=== PATIENT | male | born 1980 | race Two or more races ===

== ENCOUNTER 2025-01-06 05:46 | Inpatient (IN) | payer BC, OTHER ==
[~2025-01-06] VITALS: Ht 175.3 cm; Wt 86.4 kg
--- NOTE | 2025-01-06 06:59 | ED.PDOC ---
History of Present Illness HPI Comments 44 y/o M presents with c/c nonradiating, epigastric abdominal pain and nausea. Patient endorses on eating breakfast, this morning, when he experience sudden, unprovoked, and atraumatic onset of symptoms. Pain is descried as sharp in quality and a 5/10 in severity. Patient also reports on becoming pale and sw eaty, momentarily, and is unable to pass gas, currently. Significant history of appendectomy and multiple hernias in the past. Social history of nicotine patch use. No endorsement of any recent ailments, sick contacts, or spoiled food consumption. Denial vomiting, diarrhea, constipation, urinary symptoms, fever chills, or further associated symptoms. Chief Complaint: Abdominal Pain Time Seen by MD: 06:40 Reviewed Notes: Nurses Notes, Medications, Allergies Allergies: Coded Allergies: NO KNOWN ALLERGIES (Unverified , 01/06/25) Information Source: Patient Mode of Arrival: Ambulatory Past Medical History Past Medical History (Other): History of multiple hernias Surgical History: Appendectomy, Hernia Repair Family History Family History: Unknown Social History Smoker: Other (nicotine patches ) Alcohol: Denies ETOH Use Drugs: Denies Drug Use Lives In: Home All Other Systems: Reviewed and Negative (Comprehensive systems review obtained and negative except for what is stated in the HPI.) Physical Exam General Appearance: Moderate Distress, Normal HEENT: Normal ENT Inspection, Pharynx Normal, TMs Normal Neck: Full Range of Motion, Non-Tender, Normal, Normal Inspection Respiratory: Chest Non-Tender, Lungs Clear, No Accessory Muscle Use, No Respiratory Distress, Normal Breath Sounds Cardiovascular: No Edema, No JVD, No Murmur, No Gallop, Normal Peripheral Pulses, Regular Rate/Rhythm Breast Exam: Deferred Gastrointestinal: Distended, No Organomegaly, Non Tender, No Pulsatile Mass, Normal Bowel Sounds, Soft Genitalia: Deferred Pelvic: Deferred Rectal: Deferred Extremities: No calf tenderness, Normal capillary refill, Normal inspection, Normal range of motion, Non-tender, No pedal edema Musculoskeletal : Apperance: Normal Neurologic: Alert, route contractor II-XII nml as Tested, No Motor Deficits, Normal Affect, Normal Mood, No Sensory Deficits Cerebellar Function: Normal Reflexes: Normal Skin: Dry, Normal Color, Warm Peripheral Pulses: 3+ Radial (R), 3+ Radial (L) Lymphatic: No Adenopathy Was a procedure done? Was a procedure done?: No Differential Dx Considerations may include: Gastritis, gastroenteritis, acid reflux, PUD, cholelithiasis, cholelithiasis, viral syndrome, constipation, among others X-Ray, Labs, Meds, VS Vital Signs Date Time Temp Pulse Resp B/P (MAP) Pulse Ox O2 Delivery O2 Flow Rate FiO2 01/06/25 05:52 97.8 52 20 142/88 100 97.8 Lab Test 01/06/25 07:30 Range/Units White Blood Count 11.2 H 4.4-10.8 10^3/uL Red Blood Count 5.65 4.5-5.90 10^6/uL Hemoglobin 16.5 13.5-17.5 g/dL Hematocrit 48.3 41.0-53.0 % Mean Corpuscular Volume 85.6 80.0-100.0 fL Mean Corpuscular Hemoglobin 29.1 28.0-32.0 pg Mean Corpuscular Hemoglobin Concent 34.1 32.0-36.0 g/dL Red Cell Distribution Width 13.2 11.8-14.3 % Platelet Count 302 140-450 10^3/uL Mean Platelet Volume 7.5 6.9-10.8 fL Neutrophils (%) (Auto) 85.5 H 37.0-80.0 % Lymphocytes (%) (Auto) 7.9 L 10.0-50.0 % Monocytes (%) (Auto) 5.7 0.0-12.0 % Eosinophils (%) (Auto) 0.6 0.0-7.0 % Basophils (%) (Auto) 0.3 0.0-2.0 % Neutrophils # (Auto) 9.6 H 1.6-8.6 10 ^3/uL Lymphocytes # (Auto) 0.9 0.4-5.4 10 ^3/uL Monocytes # (Auto) 0.6 0-1.3 10 ^3/uL Eosinophils # (Auto) 0.1 0-0.8 10 ^3/uL Basophils # (Auto) 0 0-0.2 10 ^3/uL Nucleated Red Blood Cells 0.0 % Sodium Level 141 136-145 mmol/L Potassium Level 4.1 3.5-5.1 mmol/L Chloride Level 108 H 98-107 mmol/L Carbon Dioxide Level 24 20-31 mmol/L Anion Gap 9 5-15 Blood Urea Nitrogen 16 9-23 mg/dL Creatinine 1.10 0.700-1.30 mg/dL Glomerular Filtration Rate Calc 84 >90 mL/min BUN/Creatinine Ratio 14.5 10.0-20.0 Serum Glucose 147 H 74-106 mg/dL Calcium Level 9.6 8.7-10.4 mg/dL Lipase Pending Patient alert. Complaining of abdominal pain. Blood pressure slightly elevated. Answering all questions. No sign of distress. Establish intravenous access. Was given fluids. Explained to the patient. Continue monitoring. He continues to have abdominal pain. WBC elevated. Blood sugar elevated. CT scan of the abdomen reviewed does show colitis. Was given Zofran. Time of 1ST Reevaluation: 07:10 Reevaluation 1ST: Unchanged Patient Education/Counseling: Diagnosis, Treatment Family Education/Counseling: No Family Present SEPSIS Sepsis Screen Date sepsis recognized/suspect: Jan 06, 2025 Time Sepsis recognized/suspect: 555 Recent Procedure: No On Antibiotic Therapy: No Respiratory Rate >20: No Heart Rate >90: No Temp<36 C (96.8 F) or >38.3 C: No SBP <90 or MAP <65 mmHG: No New Acute Mental Status Change: No Is the patient on CPAP, BIPAP,: No Physician Orders Lipase (01/06/25 06:44) Basic Metabolic Panel (01/06/25 06:44) Ct Ab Pel Wo Con-No Oral Or Iv (01/06/25 07:34) Vital Signs Date Time Temp Pulse Resp B/P (MAP) Pulse Ox O2 Delivery O2 Flow Rate FiO2 01/06/25 05:52 97.8 52 20 142/88 100 97.8 Laboratory Tests Test 01/06/25 07:30 White Blood Count 11.2 10^3/uL (4.4-10.8) H Departure 1 Departure Time of Disposition: 07:33 Impression: Primary Impression: Acute abdominal pain Additional Impressions: Non-specific colitis Uncontrolled diabetes mellitus Qualified Codes: E13.65 - Other specified diabetes mellitus with hyperglycemia Disposition: ADMITTED INPATIENT Admit to: Med Surg Condition: Guarded Critical Care Note Critical Care Time?: No Stability Stability form required: No Heart Score Heart Score: Heart Score Response (Comments) Value History N/A 0 EKG N/A 0 Age N/A 0 Risk Factors N/A 0 Troponin N/A 0 Total 0 I personally scribed for RITA ALFARO MD ([email or web address]) on 01/06/25 at 06:59. Electronically submitted by Alex Bal ([email or web address]). I personally scribed for RITA ALFARO MD ([email or web address]) on 01/06/25 at 07:13. Electronically submitted by Alex Bal ([email or web address]). RITA ALFARO MD Jan 06, 2025 06:59
[2025-01-06 07:40] LABS: Hematocrit 48.3 % (41.0-53.0); Hemoglobin 16.5 g/dL (13.5-17.5); Mean Corpuscular Hemoglobin 29.1 pg (28.0-32.0); Mean Corpuscular Volume 85.6 fL (80.0-100.0); Nucleated Red Blood Cells % 0.0 %
[2025-01-06 07:46] LABS: Potassium 4.1 mmol/L (3.5-5.1); Sodium 141 mmol/L (136-145)
[2025-01-06 07:47] LABS: Anion Gap 9 (5-15); Carbon Dioxide 24 mmol/L (20-31)
[2025-01-06 07:48] LABS: Calcium 9.6 mg/dL (8.7-10.4)
[2025-01-06 07:53] LABS: BUN/Creatinine Ratio 14.5 (10.0-20.0); Blood Urea Nitrogen 16 mg/dL (9-23); Chloride 108 mmol/L (98-107); Glucose 147 mg/dL (74-106)
--- NOTE | 2025-01-06 08:17 | DVH ---
Exam: CT CT AB PEL WO CON-NO ORAL OR IV History: Enteritis Comparison Study: None Technique: Multidetector spiral CT of the abdomen and pelvis was performed from lung bases to pubic s ymphysis. Imaging was performed without intravenous contrast. Coronal and sagittal multiplanar reform ats were obtained from the axial data set by the technologist. Radiation Dose : 1. Abdomen/Pelvis: CTDIvol 10.46 mGy, DLP 640.2 mGy*cm. Findings: Evaluation of vasculature and solid organs is limited due to lack of intravenous contrast use. Lung Bases: Lung bases are clear. Visualized portions of the heart and pericardium are unremarkable. Liver: The liver is normal in size. No focal lesions. Gallbladder and Biliary Tree: The gallbladder is unremarkable. No intrahepatic or extrahepatic biliar y ductal dilatation. Spleen: Unremarkable Pancreas: The pancreas is grossly unremarkable. Adrenal Glands: Unremarkable Kidneys: Kidneys are unremarkable without calculi or hydronephrosis. GI tract: The stomach is grossly normal in appearance. No evidence of small bowel wall thickening or abnormal dilatation to suggest bowel obstruction. Mucosal thickening of the transverse, descending an d sigmoid colon. The appendix is not visualized, there are postsurgical changes of the base of the ce cum. Peritoneum/mesentery/retroperitoneum. No evidence of free intraperitoneal air. No ascites. No evidenc e of suspicious lymphadenopathy. Abdominal Wall: Fat containing right inguinal hernia. Fat containing left inguinal hernia. Vasculature: The visualized abdominal aorta is normal in size and caliber. Evaluation of abdominal a nd pelvic vessels is limited due to lack of intravenous contrast. Urinary Bladder: Grossly unremarkable for degree of distention. Pelvic Organs: Unremarkable Musculoskeletal: No aggressive focal bony lesions, acute fractures or dislocation. IMPRESSION: 1. There is mucosal thickening of the transverse, descending and sigmoid colon suggesting colitis. No bowel obstruction. 2. Bilateral fat containing inguinal hernias.
[2025-01-06 08:47] LABS: Lipase 36 U/L (12-53)
[2025-01-06 09:31] VITALS: PULSE 84; RESP 20; O2SAT 96
[2025-01-06 10:02] LABS: Urine Protein, UAD Negative (Negative)
[2025-01-06] MEDS: PIPERACILLIN-TAZOB 3.375GM 100 ML IV ONE (11:42)
[2025-01-06] MEDS: ONDANSETRON HCL 4 MG/2 ML VIAL IV ONE (11:43)
[2025-01-06] MEDS: SODIUM CHLORIDE 0.9% 1,000 ML IVB ONE (11:43)
[2025-01-06] MEDS: MORPHINE SULFATE 4 MG/ML SYR/VIAL IV ONE (11:51)
[2025-01-06] MEDS ORDERED: LORazepam 2MG/ML-1ML VIAL IV PRN (15:00)
[2025-01-06] MEDS ORDERED: DEXTROSE (50%) 50ML SYRG IV PRN (15:00)
[2025-01-06] MEDS: SODIUM CHLORIDE 0.9% 1,000 ML IV ONE (15:00)
--- NOTE | 2025-01-06 15:01 | DVHHP2 ---
History of Present Illness History of Present Illness This is a 44-year-old male no past medical history came to ED with a chief complaint of non-radiating epigastric abdominal pain which is 6/10 intensity, continuous, accompanied by nausea but no vomiting. The patient reports the sudden, unprovoked, and atraumatic onset of symptoms while eating breakfast earlier this morning. He never experienced this type of symptoms before. He also notes transient pallor, sweating and diaphoresis at the time of onset. Never seen by GI or colonoscopy/EGD done. In ER patient received Zosyn, morphine, NSS, ondansetron and symptoms improving. Past surgical history is significant for appendectomy and multiple hernia rep airs in childhood. He uses a nicotine patch and denies any recent illness, sick contacts, or consumption of spoiled food. He denies vomiting, diarrhea, constipation, urinary symptoms, fever, chills, or other associated symptoms. Past medical history: Prediabetic Surgical History: Appendectomy, Hernia Repair Family History: Unknown Social History Smoker: Other (nicotine patches ) Alcohol: Denies ETOH Use Drugs: Denies Drug Use Lives In: Home ACP: Not selected Allergy: No known allergy Review of Systems Constitutional: Yes: Fever, Chills, Sweats, Weakness, Malaise, Other Eyes: Pain, Vision change, Conjunctivae inflammation, Eyelid inflammation, Other, Redness ENT: Ear pain, Ear discharge, Nose pain, Nose discharge, Nose congestion, Mouth pain, Mouth swelling, Throat pain, Throat swelling, Other Respiratory: Cough, Dry, Shortness of breath, SOB with excertion, Wheezing, Hemoptysis, Pleuritic Pain, Sputum, Wheezing, Other Cardiovascular: Chest Pain, Palpitations, Orthopnea, Paroxysmal Noc. Dyspnea, Edema, Lt Headedness, Other Gastrointestinal: Nausea, Vomiting, Abdominal Pain, Diarrhea, Constipation, Melena, Hematochezia, Other (Sweating, pallor) Genitourinary: Dysuria, Frequency, Incontinence, Hematuria, Retention, Other Musculoskeletal: other, neck pain, shoulder pain, arm pain, back pain, hand pain, leg pain, foot pain Skin: Rash, Lesions, Jaundice, Bruising, Other Neurological: Weakness, Numbness, Incoordination, Change in speech, Confusion, Seizures, Other Allergies: Coded Allergies: NO KNOWN ALLERGIES (Unverified , 01/06/25) Exam Vital Signs Vital Signs Date Time Temp Pulse Resp B/P (MAP) Pulse Ox O2 Delivery O2 Flow Rate FiO2 01/06/25 12:01 98.9 70 16 132/84 (100) 98 98.9 01/06/25 09:31 Room Air* 0 21 General Appearance: Alert, Oriented X3, Cooperative HEENT: Atraumatic, PERRLA, EOMI Respiratory: Clear to auscultation, Normal air movement Cardiovascular: Regular rate, Normal S1, Normal S2 Abdominal: Normal bowel sounds, Other (Upper abdomen tender on deep palpation) Extremities: No clubbing, No cyanosis, No edema Skin: No rashes, No breakdown Neuro: Normal gait, Normal speech, Strength at 5/5 X4 ext Psych/Mental Status: Mental status NL Labs/Xrays Labs Test 01/06/25 07:30 01/06/25 07:14 Range/Units White Blood Count 11.2 H 4.4-10.8 10^3/uL Red Blood Count 5.65 4.5-5.90 10^6/uL Hemoglobin 16.5 13.5-17.5 g/dL Hematocrit 48.3 41.0-53.0 % Mean Corpuscular Volume 85.6 80.0-100.0 fL Mean Corpuscular Hemoglobin 29.1 28.0-32.0 pg Mean Corpuscular Hemoglobin Concent 34.1 32.0-36.0 g/dL Red Cell Distribution Width 13.2 11.8-14.3 % Platelet Count 302 140-450 10^3/uL Mean Platelet Volume 7.5 6.9-10.8 fL Neutrophils (%) (Auto) 85.5 H 37.0-80.0 % Lymphocytes (%) (Auto) 7.9 L 10.0-50.0 % Monocytes (%) (Auto) 5.7 0.0-12.0 % Eosinophils (%) (Auto) 0.6 0.0-7.0 % Basophils (%) (Auto) 0.3 0.0-2.0 % Neutrophils # (Auto) 9.6 H 1.6-8.6 10 ^3/uL Lymphocytes # (Auto) 0.9 0.4-5.4 10 ^3/uL Monocytes # (Auto) 0.6 0-1.3 10 ^3/uL Eosinophils # (Auto) 0.1 0-0.8 10 ^3/uL Basophils # (Auto) 0 0-0.2 10 ^3/uL Nucleated Red Blood Cells 0.0 % Sodium Level 141 136-145 mmol/L Potassium Level 4.1 3.5-5.1 mmol/L Chloride Level 108 H 98-107 mmol/L Carbon Dioxide Level 24 20-31 mmol/L Anion Gap 9 5-15 Blood Urea Nitrogen 16 9-23 mg/dL Creatinine 1.10 0.700-1.30 mg/dL Glomerular Filtration Rate Calc 84 >90 mL/min BUN/Creatinine Ratio 14.5 10.0-20.0 Serum Glucose 147 H 74-106 mg/dL Calcium Level 9.6 8.7-10.4 mg/dL Lipase 36 12-53 U/L Urine Color Yellow Yellow Urine Clarity Clear Clear Urine pH 6.0 5.0-9.0 Urine Specific [place] 1.023 1.001-1.035 Urine Protein Negative Negative Urine Ketones Negative Negative Urine Blood Negative Negative /uL Urine Nitrite Negative Negative Urine Bilirubin Negative Negative Urine Urobilinogen Normal Negative mg/dL Urine Leukocyte Esterase Negative Negative /uL Urine RBC 1 0 - 3 /hpf Urine Microscopic WBC 1 0-3 /HPF Urine Squamous Epithelial Cells None seen <5 /hpf Urine Bacteria Few H None Seen /hpf Urine Glucose Normal Normal mg/dL SEPSIS Sepsis Screen Date sepsis recognized/suspect: Jan 06, 2025 Time Sepsis recognized/suspect: 0556 Recent Procedure: No On Antibiotic Therapy: No Respiratory Rate >20: No Heart Rate >90: No Temp<36 C (96.8 F) or >38.3 C: No SBP <90 or MAP <65 mmHG: No New Acute Mental Status Change: No Is the patient on CPAP, BIPAP,: No Physician Orders Ct Ab Pel Wo Con-No Oral Or Iv (01/06/25 07:34) Admit (01/06/25 14:53) Code Status (01/06/25 14:53) Notify Of Changes From Base (01/06/25 14:53) Regular Diet (01/06/25 Dinner) Creatine Kinase (01/06/25 14:53) Levetiracetam Tablet (Keppra Tablet) (01/06/25 22:00) Lorazepam 2mg/Ml Inj (Ativan Inj) (01/06/25 15:00) NS (01/06/25 15:00) Blood Culture (01/06/25 14:53) Glucose Blood (Accu-Chek Comfort Curve T (01/06/25 17:00) Mild Sliding Scale (01/06/25 17:00) Dextrose 50% Syringe (01/06/25 15:00) Atorvastatin (Lipitor) (01/06/25 22:00) Vital Signs Date Time Temp Pulse Resp B/P (MAP) Pulse Ox O2 Delivery O2 Flow Rate FiO2 01/06/25 12:01 98.9 70 16 132/84 (100) 98 98.9 01/06/25 09:36 97.8 50 16 134/87 (103) 98 97.8 01/06/25 09:31 84 20 96 Room Air* 0 21 Laboratory Tests Test 01/06/25 07:30 White Blood Count 11.2 10^3/uL (4.4-10.8) H Medications Medications Dose Ordered Sig/Sandy Route Start Time Stop Time Status Last Admin Dose Admin Ondansetron HCl 4 mg ONCE ONCE IV 01/06/25 06:45 01/06/25 06:46 DC 01/06/25 11:43 4 MG Piperacillin Sod/ Tazobactam Sod 100 ml @ 100 mls/hr ONCE ONCE IV 01/06/25 08:30 01/06/25 09:29 DC 01/06/25 11:42 100 MLS/HR Sodium Chloride 1,000 ml @ 1,000 mls/hr Q1H ONCE IVB 01/06/25 06:45 01/06/25 07:44 DC 01/06/25 11:43 1,000 MLS/HR Assessment/Plan Assessment/Plan #Intractable abdominal pain likely gastritis Lipase level 36, UA negative for UTI NSS IV 100 cc/hour Clear liquid diet Pantoprazole 40 mg p.o. daily Ondansetron 4 mg q.6 p.r.n. Monitor vitals #Colitis likely viral/bacterial CT abdomen and pelvis without contrast:mucosal thickening of the transverse, renetta cending and sigmoid colon suggesting colitis. 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 more than 29 minute spent with patient. Full code status. Case discussed with Dr. De Leon Cosigned by Dr Humphrey, PGY2, resident Plan discussed with: Patient, Other (Nurse) My Orders Orders - STEFF LALA Procedure Category Date Status Time Admit ADMIT 01/06/25 Transmitted 14:53 Code Status CODE 01/06/25 Transmitted 14:53 Notify Of Changes BOZENA 01/06/25 Transmitted From Base 14:53 Regular Diet DIET 01/06/25 Transmitted Dinner Creatine Kinase LAB 01/06/25 Transmitted 14:53 Levetiracetam Tablet PHA 01/06/25 Transmitted (Keppra Tablet) 22:00 Lorazepam 2mg/Ml Inj PHA 01/06/25 Transmitted (Ativan Inj) 15:00 NS PHA 01/06/25 Transmitted 15:00 Blood Culture LARA 01/06/25 Transmitted 14:53 Glucose Blood PHA 01/06/25 Transmitted (Accu-Chek Comfort 17:00 Mild Sliding Scale PHA 01/06/25 Transmitted 17:00 Dextrose 50% Syringe PHA 01/06/25 Transmitted 15:00 Atorvastatin (Lipitor) PHA 01/06/25 Transmitted 22:00 Date of Service: Jan 06, 2025 Billing Provider: JUSTIN DE LEON MD Common Visit Codes: 28226-[id number] INP/OBS CARE (HIGH) Secondary Visit Codes: 68037-[id number] CARE PLAN 30 MINUTES STEFF LALA Jan 06, 2025 15:01
[2025-01-06] MEDS ORDERED: InsuLIN REG 1unit/0.01ml Soln (100units/ml) SC SCH (17:00)
[2025-01-06] MEDS ORDERED: ACCU-CHEK COMFORT CURVE STRIP VI SCH (17:00)
[2025-01-06 17:28] VITALS: BP 146/88; PULSE 71; RESP 17; TEMP 99; O2SAT 97
[2025-01-06 17:51] VITALS: BP 146/88; PULSE 71; RESP 17; TEMP 99; O2SAT 97
[2025-01-06 21:00] VITALS: BP 128/83; PULSE 71; RESP 18; TEMP 98.4; O2SAT 95
[2025-01-06] MEDS ORDERED: levETIRAcetam 500 MG TAB PO SCH (22:00)
[2025-01-06] MEDS ORDERED: ATORVASTATIN 20 MG TAB PO SCH (22:00)
[2025-01-07 02:13] LABS: Amphetamine Screen, Urine Neg (NEGATIVE); Barbiturate Scree,Urine Neg (NEGATIVE); Benzodiazephine Screen, Urine Neg (NEGATIVE); Cannabinoid Screen, Urine Neg (NEGATIVE); Cocaine Screen, Urine Neg (NEGATIVE); Opiate Scree,Urine Neg (NEGATIVE); Phencyclidine Screen, Urine Neg (NEGATIVE)
[2025-01-07 05:00] VITALS: BP 118/78; PULSE 74; RESP 18; TEMP 98.6; O2SAT 96
[2025-01-07] MEDS: PANTOPRAZOLE 40 MG TAB PO SCH (05:06)
[2025-01-07 06:31] LABS: Hematocrit 45.3 % (41.0-53.0); Hemoglobin 15.5 g/dL (13.5-17.5); Mean Corpuscular Hemoglobin 29.4 pg (28.0-32.0); Mean Corpuscular Volume 86.0 fL (80.0-100.0); Nucleated Red Blood Cells % 0.0 %
[2025-01-07 06:54] LABS: Alanine Aminotransferase 52 U/L (7-40); Albumin 4.6 g/dL (3.2-4.8); Alkaline Phosphatase 66 U/L (46-116); Anion Gap 8 (5-15); BUN/Creatinine Ratio 7.3 (10.0-20.0); Bilirubin, Total 0.8 mg/dL (0.2-1.0); Blood Urea Nitrogen 8 mg/dL (9-23); Calcium 9.2 mg/dL (8.7-10.4); Carbon Dioxide 26 mmol/L (20-31); Chloride 108 mmol/L (98-107); Cholesterol 184 mg/dL (< 200); Glucose 109 mg/dL (74-106); HDL Cholesterol 34 mg/dL (40-59); Potassium 4.3 mmol/L (3.5-5.1); Sodium 142 mmol/L (136-145); Triglycerides 183 mg/dL (< 150)
[2025-01-07 07:13] LABS: Total Protein 7.4 g/dL (5.7-8.2)
[2025-01-07 08:49] VITALS: BP 118/82; PULSE 62; RESP 17; TEMP 99.2; O2SAT 94
[2025-01-07 09:30] VITALS: BP 117/75; PULSE 79; RESP 15; TEMP 98.8; O2SAT 98
--- NOTE | 2025-01-07 20:55 | DVHPNRES ---
Progress Note Date Seen: Jan 07, 2025 Resident Creating Document: STEFF LALA RESIDENT Medical Necessity Reason Pt with a Central, PICC or Fol: No Subjective Review of Systems This is a 44-year-old male who came to ED with a chief complaint of non- radiating epigastric abdominal pain which is 6/10 intensity, continuous, accompanied by nausea but no vomiting. The patient reports the sudden, unprovoked, and atraumatic onset of symptoms while eating breakfast earlier this morning. He never experienced this type of symptoms before. He also notes transient pallor, sweating and diaphoresis at the time of onset. Never seen by GI or colonoscopy/EGD done. In ER patient received Zosyn, morphine, NSS, ondansetron and symptoms improving. Denies any recent illness, sick contacts, or consumption of spoiled food. He denies vomiting, diarrhea, constipation, urinary symptoms, fever, chills, or other associated symptoms. Past medical history: Prediabetic Surgical History: Appendectomy, Hernia Repair Family History: Unknown Social History Smoker: Other (nicotine patches ) Alcohol: Denies ETOH Use Drugs: Denies Drug Use Lives In: Home PCP: Not selected Allergy: No known allergy Patient seen on bedside, currently denies any acute distress. No nausea, vomiting, abdominal pain, constipation, diarrhea noted. Diet advanced from liquid to soft, we will monitor. On examination bowel sounds present and mild tender on deep palpation. Stool for WBC and culture ordered. Objective vital signs Vital Sign Date Time Temp Pulse Resp B/P (MAP) Pulse Ox O2 Delivery O2 Flow Rate FiO2 01/07/25 08:49 99.2 62 17 118/82 (94) 94 99.2 01/06/25 09:31 Room Air* 0 21 Total Intake and Output 01/06/25 01/06/25 01/07/25 15:00 23:00 07:00 Intake Total 380 ml Balance 380 ml medications Current Medications Medications Dose Ordered Sig/Sandy Route Start Time Stop Time Status Last Admin Dose Admin Pantoprazole Sodium 40 mg DAILY@0600 PO 01/07/25 06:00 01/07/25 05:06 40 MG Examination General Appearance: Alert, Oriented X3, Cooperative HEENT: Atraumatic, PERRLA, EOMI Respiratory: Clear to auscultation, Normal air movement Cardiovascular: Regular rate, Normal S1, Normal S2 Abdominal: Normal bowel sounds, epigastric region tender on deep palpation Extremities: No clubbing, No cyanosis, No edema Skin: No rashes, No breakdown Neuro: Normal gait, Normal speech, Strength at 5/5 X4 ext Psych/Mental Status: Mental status NL laboratory and microbiology Laboratory Tests 01/07/25 06:10 Test 01/07/25 06:10 Range/Units Serum Glucose 109 H 74-106 mg/dL Problem List/Assessment/Plan Problem List/Assessment/Plan Assessment intractable abdominal pain due to gastritis gastroesophageal reflux disease rule out colitis HIWOT due to vasomotor nephropathy prediabetes obesity leukocytosis mixed hyperlipidemia IMAGE: CT abdomen pelvis without contrast: There is mucosal thickening of the transverse, descending and sigmoid colon suggesting colitis. No bowel obstruction. Bilateral fat containing inguinal hernias. Plan diet advanced to soft diet pantoprazole 40 mg p.o. daily encourage fluid intake as tolerated stool for WBC and culture- pending report Goals of care discussions. Full code status. Than 21 minute spent with patient. Discussed with Dr. Wild. Plan discussed with: Patient, Other (Nurse) My Orders My Orders Orders - STEFF LALA RESIDENT Procedure Category Date Status Time Stool Wbc LAB 01/07/25 Logged 11:45 Basic Metabolic Panel LAB 01/08/25 Verified 04:00 Complete Blood Count LAB 01/08/25 Verified 04:00 STEFF LALA RESIDENT Jan 07, 2025 20:55 AKHIL OLEARY RESIDENT Jan 08, 2025 20:21
--- NOTE | 2025-01-08 07:11 | DVHDSRES ---
Discharge Summary Date of Admission Resident Creating Document: STEFF LALA RESIDENT Jan 06, 2025 at 15:05 Date of Discharge: Jan 08, 2025 Labs/Diagnostic Data: Laboratory Results Test 01/07/25 06:10 01/07/25 01:10 01/06/25 07:30 01/06/25 07:14 White Blood Count 10.2 10^3/uL (4.4-10.8) Red Blood Count 5.27 10^6/uL (4.5-5.90) Hemoglobin 15.5 g/dL (13.5-17.5) Hematocrit 45.3 % (41.0-53.0) Mean Corpuscular Volume 86.0 fL (80.0-100.0) Mean Corpuscular Hemoglobin 29.4 pg (28.0-32.0) Mean Corpuscular Hemoglobin Concent 34.2 g/dL (32.0-36.0) Red Cell Distribution Width 13.2 % (11.8-14.3) Platelet Count 265 10^3/uL (140-450) Mean Platelet Volume 7.5 fL (6.9-10.8) Neutrophils (%) (Auto) 72.8 % (37.0-80.0) Lymphocytes (%) (Auto) 15.8 % (10.0-50.0) Monocytes (%) (Auto) 9.2 % (0.0-12.0) Eosinophils (%) (Auto) 1.9 % (0.0-7.0) Basophils (%) (Auto) 0.3 % (0.0-2.0) Neutrophils # (Auto) 7.5 10 ^3/uL (1.6-8.6) Lymphocytes # (Auto) 1.6 10 ^3/uL (0.4-5.4) Monocytes # (Auto) 0.9 10 ^3/uL (0-1.3) Eosinophils # (Auto) 0.2 10 ^3/uL (0-0.8) Basophils # (Auto) 0 10 ^3/uL (0-0.2) Nucleated Red Blood Cells 0.0 % Sodium Level 142 mmol/L (136-145) Potassium Level 4.3 mmol/L (3.5-5.1) Chloride Level 108 mmol/L (98-107) Carbon Dioxide Level 26 mmol/L (20-31) Anion Gap 8 (5-15) Blood Urea Nitrogen 8 mg/dL (9-23) Creatinine 1.10 mg/dL (0.700-1.30) Glomerular Filtration Rate Calc 84 mL/min (>90) BUN/Creatinine Ratio 7.3 (10.0-20.0) Serum Glucose 109 mg/dL (74-106) Hemoglobin A1c 5.7 % A1C (<5.7) Calcium Level 9.2 mg/dL (8.7-10.4) Total Bilirubin 0.8 mg/dL (0.2-1.0) Aspartate Amino Transferase (AST) 22 U/L (13-40) Alanine Aminotransferase (ALT) 52 U/L (7-40) Alkaline Phosphatase 66 U/L (46-116) Total Protein 7.4 g/dL (5.7-8.2) Albumin 4.6 g/dL (3.2-4.8) Triglycerides Level 183 mg/dL (< 150) Cholesterol Level 184 mg/dL (< 200) LDL Cholesterol 131 mg/dL (< 100) HDL Cholesterol 34 mg/dL (40-59) Vitamin B12 Level 566 pg/mL (211-911) Thyroid Stimulating Hormone (TSH) 1.58 uIU/mL (0.55-4.78) Urine Opiates Screen Neg (NEGATIVE) Urine Fentanyl Screen Pos (NEGATIVE) Urine Barbiturates Screen Neg (NEGATIVE) Urine Phencyclidine Screen Neg (NEGATIVE) Urine Amphetamines Screen Neg (NEGATIVE) Urine Benzodiazepines Screen Neg (NEGATIVE) Urine Cocaine Screen Neg (NEGATIVE) Urine Cannabinoids Screen Neg (NEGATIVE) Lipase 36 U/L (12-53) Urine Color Yellow (Yellow) Urine Clarity Clear (Clear) Urine pH 6.0 (5.0-9.0) Urine Specific Grants 1.023 (1.001-1.035) Urine Protein Negative (Negative) Urine Ketones Negative (Negative) Urine Blood Negative /uL (Negative) Urine Nitrite Negative (Negative) Urine Bilirubin Negative (Negative) Urine Urobilinogen Normal mg/dL (Negative) Urine Leukocyte Esterase Negative /uL (Negative) Urine RBC 1 /hpf (0 - 3) Urine Microscopic WBC 1 /HPF (0-3) Urine Squamous Epithelial Cells None seen /hpf (<5) Urine Bacteria Few /hpf (None Seen) Urine Glucose Normal mg/dL (Normal) Other Laboratory Tests 8/28/25 06:10 Brief Hx & Hospital Course: This is a 44-year-old male who came to ED with a chief complaint of non- radiating epigastric abdominal pain which is 6/10 intensity, continuous, accompanied by nausea but no vomiting. The patient reports the sudden, unprovoked, and atraumatic onset of symptoms while eating breakfast earlier this morning. He never experienced this type of symptoms before. He also notes transient pallor, sweating and diaphoresis at the time of onset. Never seen by GI or colonoscopy/EGD done. In ER patient received Zosyn, morphine, NSS, ondansetron and symptoms improving. Denies any recent illness, sick contacts, or consumption of spoiled food. He denies vomiting, diarrhea, constipation, urinary symptoms, fever, chills, or other associated symptoms. Past medical history: Prediabetic Surgical History: Appendectomy, Hernia Repair Family History: Unknown Social History Smoker: Other (nicotine patches ) Alcohol: Denies ETOH Use Drugs: Denies Drug Use Lives In: Home ACP: Not selected Allergy: No known allergy Home medication: NONE Patient left AMA and signed refusal of treatment and AMA form. Hep-Lock and all lines removed. Patient is AAO x4, having decision making capacity, demonstrates understanding of all risks including worsening risks of morbidity and mortality, which were explained in layman's terms by RN, as indicated by ability to perform teach-back. Time given for questions and concerns which were answered/ addressed. Patient was counseled extensively and was encouraged to return to ER if alarming symptoms present. Operations or Procedures PATIENT: CHARLES ORELLANA ACCT: [id number] UNIT: [id number] : 1980 LOC: ER ROOM / BED: / AGE / SEX: 44 / M ADM STATUS: REG ER SERVICE [id number] ORDERING PHYSICIAN: RITA ALFARO MD PROCEDURE(s): ABPL - CT AB PEL WO CON-NO ORAL OR IV REASON: enteritis ORDER NUMBER(s): [id number], ACCESSION NUMBER(s): [id number] Exam: CT CT AB PEL WO CON-NO ORAL OR IV History: Enteritis Comparison Study: None Technique: Multidetector spiral CT of the abdomen and pelvis was performed from lung bases to pubic symphysis. Imaging was performed without intravenous contrast. Coronal and sagittal multiplanar reformats were obtained from the axial data set by the technologist. Radiation Dose : 1. Abdomen/Pelvis: CTDIvol 10.46 mGy, DLP 640.2 mGy*cm. Findings: Evaluation of vasculature and solid organs is limited due to lack of intravenous contrast use. Lung Bases: Lung bases are clear. Visualized portions of the heart and pericardium are unremarkable. Liver: The liver is normal in size. No focal lesions. Gallbladder and Biliary Tree: The gallbladder is unremarkable. No intrahepatic or extrahepatic biliary ductal dilatation. Spleen: Unremarkable Pancreas: The pancreas is grossly unremarkable. Adrenal Glands: Unremarkable Kidneys: Kidneys are unremarkable without calculi or hydronephrosis. GI tract: The stomach is grossly normal in appearance. No evidence of small bowel wall thickening or abnormal dilatation to suggest bowel obstruction. Mucosal thickening of the transverse, descending and sigmoid colon. The appendix is not visualized, there are postsurgical changes of the base of the cecum. Peritoneum/mesentery/retroperitoneum. No evidence of free intraperitoneal air. No ascites. No evidence of suspicious lymphadenopathy. Abdominal Wall: Fat containing right inguinal hernia. Fat containing left inguinal hernia. Vasculature: The visualized abdominal aorta is normal in size and caliber. Evaluation of abdominal and pelvic vessels is limited due to lack of intravenous contrast. Urinary Bladder: Grossly unremarkable for degree of distention. Pelvic Organs: Unremarkable Musculoskeletal: No aggressive focal bony lesions, acute fractures or dislocation. IMPRESSION: 1. There is mucosal thickening of the transverse, descending and sigmoid colon suggesting colitis. No bowel obstruction. 2. Bilateral fat containing inguinal hernias. 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 Patient was counseled about treatment plan, medications, possible side effects, patientverbalized understanding. All questions were answered to the best of my ability. This discharge took greater then 30 minutes in planning, reviewing documentation, counseling the patient, and discussing with other team members." ASSESSMENT ASSESSMENT Assessment STEFF LALA RESIDENT Jan 08, 2025 07:11 TABATHA DAILY RESIDENT Jan 08, 2025 19:33 AKHIL OLEARY RESIDENT Jan 08, 2025 20:23
== END 2025-01-07 12:09 | disposition left against medical advice (07) | DRG 391 ==
LOC: ER 05:50 → OVERFLOW 15:05
PROVIDERS: ADMIT Student in an Organized Health Care Education/Training Program; ATTEND Emergency Medicine
DX: K29.70 Gastritis, unspecified, without bleeding (principal); N17.0 Acute kidney failure with tubular necrosis; E66.9 Obesity, unspecified; K52.9 Noninfective gastroenteritis and colitis, unspecified; Z68.28 Body mass index [BMI] 28.0-28.9, adult; F17.200 Nicotine dependence, unspecified, uncomplicated; R73.03 Prediabetes; K21.9 Gastro-esophageal reflux disease without esophagitis; E78.2 Mixed hyperlipidemia; Z53.29 Procedure and treatment not carried out because of patient's decision for other reasons; Z90.49 Acquired absence of other specified parts of digestive tract
CPT/HCPCS: 36415; 74176; 80048; 80053; 80061; 80307; 81001; 82607; 83036; 83690; 84443; 85025; 96365; 96375; G0378; J2405; J2543